=== PATIENT | female | born 1980 | race Caucasian/White ===

== ENCOUNTER 2016-06-07 11:18 | Outpatient (CLI) ==
[2013-09-27 10:07] VITALS: BMI 34.2
[2016-06-07 11:46] LABS: BASOPHILS # (AUTO) 0.1 K/uL (0-0.2); BASOPHILS % (AUTO) 0.7 % (0.0-3.0); EOSINOPHILS # (AUTO) 0.1 K/ul (0.0-0.7); EOSINOPHILS % (AUTO) 1.3 % (0.0-7.0); HEMATOCRIT 39.5 % (37.0-47.0); HEMOGLOBIN 13.3 g/dl (12.0-16.0); IMMATURE GRANULOCYTE % (AUTO) 0.6 % (0.0-5.0); LYMPHOCYTES # (AUTO) 1.7 K/uL (0.60-3.4); MEAN CORPUSCULAR HEMOGLOBIN 32.4 pg (27.0-31.0); MEAN CORPUSCULAR HGB CONC 33.7 (31.8-35.4); MEAN CORPUSCULAR VOLUME 96.3 fl (81.0-99.0); MONOCYTES # (AUTO) 0.5 K/uL (0.4-2.0); MONOCYTES % (AUTO) 7.3 (0-10); NEUTROPHILS # (AUTO) 4.4 K/ul (2.0-6.9); NEUTROPHILS % (AUTO) 65.1; PLATELET COUNT 320 10^3/uL (140-440); WHITE BLOOD COUNT 6.81 K/ul (4.6-10.2)
[2016-06-07 12:22] LABS: ALBUMIN 4.2 g/dL (3.4-5.0); ALBUMIN/GLOBULIN RATIO 1.4; ANION GAP 16.3; BILIRUBIN,TOTAL 0.53 mg/dL (0.00-1.20); BUN/CREATININE RATIO 12.22; CALCIUM 9.6 mg/dL (8.2-10.2); CHOL/HDL RATIO 5.7 (4.5-5.5); CREATININE 0.9 mg/dL (0.60-1.30); POTASSIUM 4.3 mmol/L (3.5-5.10); TOTAL PROTEIN 7.2 g/dL (6.4-8.2)
== END 2016-06-07 11:19 | disposition home or self-care (01) ==
LOC: LAB 11:18
PROVIDERS: ATTEND Internal Medicine
DX: I10 Essential (primary) hypertension (principal); E78.5 Hyperlipidemia, unspecified; D55.9 Anemia due to enzyme disorder, unspecified
CPT/HCPCS: 36415; 80053; 80061; 82306; 82607; 83036; 84439; 84443; 85025

== ENCOUNTER 2016-11-22 12:28 | Outpatient (CLI) ==
[2013-09-27 10:07] VITALS: BMI 34.2
[2016-11-22 13:15] LABS: BASOPHILS # (AUTO) 0.1 K/uL (0-0.2); BASOPHILS % (AUTO) 0.7 % (0.0-3.0); EOSINOPHILS # (AUTO) 0.1 K/ul (0.0-0.7); EOSINOPHILS % (AUTO) 1.3 % (0.0-7.0); HEMATOCRIT 40.1 % (37.0-47.0); HEMOGLOBIN 13.3 g/dl (12.0-16.0); IMMATURE GRANULOCYTE % (AUTO) 0.4 % (0.0-5.0); LYMPHOCYTES # (AUTO) 1.8 K/uL (0.60-3.4); LYMPHOCYTES % (AUTO) 24.4 (10.0-50.0); MEAN CORPUSCULAR HEMOGLOBIN 32.7 pg (27.0-31.0); MEAN CORPUSCULAR HGB CONC 33.2 (31.8-35.4); MEAN CORPUSCULAR VOLUME 98.5 fl (81.0-99.0); MONOCYTES # (AUTO) 0.5 K/uL (0.4-2.0); MONOCYTES % (AUTO) 6.4 (0-10); NEUTROPHILS % (AUTO) 66.8; PLATELET COUNT 335 10^3/uL (140-440); RED BLOOD COUNT 4.07 10^6/ul (4.20-5.40); WHITE BLOOD COUNT 7.45 K/ul (4.6-10.2)
[2016-11-22 13:50] LABS: ALBUMIN 3.9 g/dL (3.4-5.0); ALBUMIN/GLOBULIN RATIO 1.26; ANION GAP 15.2; BILIRUBIN,TOTAL 0.35 mg/dL (0.00-1.20); BUN/CREATININE RATIO 13.79; CALCIUM 9.5 mg/dL (8.2-10.2); CHOL/HDL RATIO 4.3 (4.5-5.5); CREATININE 0.87 mg/dL (0.60-1.30); POTASSIUM 4.2 mmol/L (3.5-5.10)
== END 2016-11-22 12:29 | disposition home or self-care (01) ==
LOC: LAB 12:28
PROVIDERS: ATTEND Internal Medicine
DX: E78.5 Hyperlipidemia, unspecified (principal); I10 Essential (primary) hypertension; F41.9 Anxiety disorder, unspecified
CPT/HCPCS: 36415; 80053; 80061; 82306; 83036; 84443; 85025

== ENCOUNTER 2017-08-28 10:18 | Outpatient (CLI) ==
[2013-09-27 10:07] VITALS: BMI 34.2
--- NOTE | 2017-08-28 11:30 | US ---
EXAM: ULTRASOUND ABDOMEN COMPLETE HISTORY: Abdominal pain and bloating FINDINGS: Oneil scale ultrasound and color Doppler was performed. The liver size was measured at 13.4 cm, withi n normal limits. The liver parenchyma demonstrated normal sonographic appearance without evidence of intrahepatic biliary dilatation or focal lesion. Patent and hepatopedal main portal vein. No evidence of gallbladder stones or sludge. Gallbladder wall thickness was normal at upper limit no rmal (0.3 cm). Common bile duct diameter was normal 0.39 cm. The visualized portions of the pancreas appeared grossly unremarkable. The visualized aorta and infer ior vena cava had grossly normal caliber. Spleen appeared normal sonographically and measured normal at 11.3 cm. The right kidney measured 10.2 cm and the left kidney 10.1 cm. Renal cortical volume and echogenicit y was within normal limits for age. No hydronephrosis seen. IMPRESSION: Findings within normal limits sonographically.
--- NOTE | 2017-08-28 11:31 | DI ---
EXAM: CHEST FRONTAL AND LATERAL VIEWS HISTORY: History of pulmonary embolism, low back pain. COMPARISON: 03/23/2015 FINDINGS: Heart size and mediastinal contour remain within normal limits. No acute infiltrates. Normal vascularity with no pleural fluid or pneumothorax. The bony thorax has no acute finding. IMPRESSION: No acute process.
== END 2017-08-28 10:19 | disposition home or self-care (01) ==
LOC: RAD 10:18
PROVIDERS: ATTEND Internal Medicine
DX: R10.9 Unspecified abdominal pain (principal); R14.0 Abdominal distension (gaseous); M54.5 Low back pain; Z86.711 Personal history of pulmonary embolism